=== PATIENT | female | born 1960 | race Caucasian/White ===

== ENCOUNTER 2023-01-26 09:28 | Inpatient (IN) | payer OTHER ==
[~2023-01-26] VITALS: Ht 157.5 cm; Wt 72.0 kg
[2023-01-26 10:45] LABS: Base Excess -2.1 mmol/L (-2.0-2.0)
[2023-01-26 10:52] LABS: Basophils # (auto) 0.1 10 ^3/uL (0-0.2); Basophils % (auto) 0.7 % (0.0-2.0); Eosinophils # (auto) 0 10 ^3/uL (0-0.8); Lymphocytes # (auto) 1.5 10 ^3/uL (0.4-5.4); Lymphocytes % (auto) 19.9 % (10.0-50.0); Mean Corpuscular Hemoglobin 27.8 pg (28.0-32.0); Mean Corpuscular Volume 86.9 fL (80.0-100.0); Monocytes # (auto) 0.9 10 ^3/uL (0-1.3); Monocytes % (auto) 11.8 % (0.0-12.0); Neutrophils % (auto) 67.6 % (37.0-80.0); Nucleated Red Blood Cells % 0.1 %; Red Blood Cells 5.41 10^6/uL (4.0-5.20); White Blood Cell 7.4 10^3/uL (4.4-10.8)
[2023-01-26 11:09] LABS: INR 1.04 (0.9-1.15); Partial Thromboplastin Time 27.9 SEC (24.5-34.5); Prothrombin Time 10.9 sec (9.3-11.8)
[2023-01-26 13:18] LABS: Alanine Aminotransferase 35 U/L (7-40); Albumin 4.5 g/dL (3.2-4.8); Alkaline Phosphatase 159 U/L (46-116); Anion Gap 17 (5-15); Aspartate Aminotransferase 36 U/L (13-40); BUN/Creatinine Ratio 16.5 (10.0-20.0); Bilirubin, Total 0.4 mg/dL (0.2-1.0); Blood Urea Nitrogen 20 mg/dL (9-23); Calcium 9.2 mg/dL (8.5-10.1); Carbon Dioxide 17 mmol/L (20-30); Chloride 105 mmol/L (98-107); Glucose 214 mg/dL (74-106); Potassium 4.1 mmol/L (3.5-5.1); Sodium 139 mmol/L (136-145); Total Protein 7.3 g/dL (5.7-8.2)
[2023-01-26] MEDS ORDERED: IOHEXOL 350 MG/ML 100ML IJ ONE (13:57)
[2023-01-26 15:33] LABS: Rapid Influenza B Negative (Negative)
[2023-01-26 15:35] LABS: COVID19 ANTIGEN SOFIA FIA NEGATIVE (NEGATIVE); Rapid Influenza A Positive (Negative)
[2023-01-26] MEDS ORDERED: ALBUAER3 IN (15:58)
[2023-01-26] MEDS ORDERED: METH4PAK PO (15:58)
[2023-01-26] MEDS ORDERED: DexAMETHasone SOD PHOS 10MG/1ML VIAL INJ IV ONE (16:30)
[2023-01-26] MEDS ORDERED: ALBUTEROL MEDNEB 2.5 mg/3ml NEB NEB ONE (18:00)
[2023-01-26] MEDS ORDERED: DEXTROSE (50%) 50ML SYRG IV PRN (18:00)
[2023-01-26] MEDS ORDERED: IPRATROPIUM BROM 0.5 MG/2.5ML INH SOL NEB ONE (18:00)
[2023-01-26] MEDS ORDERED: DOCUSATE SOD 100 MG CAP PO PRN (18:00)
[2023-01-26] MEDS ORDERED: IPRATROPIUM BROM 0.5 MG/2.5ML INH SOL ONE (18:21)
[2023-01-26] MEDS ORDERED: ALBUTEROL MEDNEB 2.5 mg/3ml NEB ONE (18:21)
[2023-01-26] MEDS: SODIUM CHLORIDE 0.9% 1,000 ML IV SCH (19:47)
[2023-01-26 21:30] VITALS: BP 111/70; PULSE 89; RESP 20; TEMP 99; O2SAT 98
[2023-01-26] MEDS ORDERED: OSELTAMIVIR 75 MG CAP PO ONE (22:00)
[2023-01-26] MEDS: ACCU-CHEK COMFORT CURVE STRIP VI SCH (23:03)
[2023-01-26] MEDS: InsuLIN REG 1unit/0.01ml Soln (100units/ml) SC SCH (23:27)
[2023-01-26] MEDS: methylPREDNISolone SOD SUCC 125 MG/2 ML VL IV SCH (23:27)
[2023-01-27] VITALS (9 sets, daily range): BP systolic 151; BP diastolic 59–71; PULSE 79–92; RESP 20–22; TEMP 98.3–99.9; O2SAT 92–98
[2023-01-27] MEDS: MORPHINE SULFATE INJ 2 MG/ml SYRG IV PRN ×4 (00:13→18:10)
[2023-01-27] MEDS: ONDANSETRON HCL 4 MG/2 ML VIAL IV PRN ×4 (00:13→18:09)
[2023-01-27] MEDS: SODIUM CHLORIDE 0.9% 1,000 ML IV SCH ×3 (02:21→18:44)
[2023-01-27] MEDS: ALBUTEROL MEDNEB 2.5 mg/3ml NEB NEB PRN (02:39)
[2023-01-27] MEDS: IPRATROPIUM BROM 0.5 MG/2.5ML INH SOL NEB PRN (02:39)
[2023-01-27 06:16] LABS: Basophils # (auto) 0 10 ^3/uL (0-0.2); Basophils % (auto) 0.2 % (0.0-2.0); Eosinophils # (auto) 0 10 ^3/uL (0-0.8); Hematocrit 42.9 % (36.0-46.0); Hemoglobin 13.8 g/dL (12.2-16.2); Lymphocytes # (auto) 0.5 10 ^3/uL (0.4-5.4); Lymphocytes % (auto) 8.5 % (10.0-50.0); Mean Corpuscular Hemoglobin 27.8 pg (28.0-32.0); Mean Corpuscular Hgb Conc. 32.3 g/dL (32.0-36.0); Mean Corpuscular Volume 86.2 fL (80.0-100.0); Monocytes # (auto) 0.1 10 ^3/uL (0-1.3); Monocytes % (auto) 1.7 % (0.0-12.0); Neutrophils # (auto) 5.2 10 ^3/uL (1.6-8.6); Neutrophils % (auto) 89.6 % (37.0-80.0); Nucleated Red Blood Cells % 0.1 %; Red Blood Cells 4.98 10^6/uL (4.0-5.20); Red Cell Distribution Width 15.5 % (11.8-14.3); White Blood Cell 5.8 10^3/uL (4.4-10.8)
[2023-01-27 06:19] LABS: Alanine Aminotransferase 27 U/L (7-40); Albumin 4.4 g/dL (3.2-4.8); Alkaline Phosphatase 151 U/L (46-116); Anion Gap 11 (5-15); Aspartate Aminotransferase 27 U/L (13-40); BUN/Creatinine Ratio 16.7 (10.0-20.0); Blood Urea Nitrogen 17 mg/dL (9-23); Calcium 9.2 mg/dL (8.5-10.1); Carbon Dioxide 20 mmol/L (20-30); Chloride 106 mmol/L (98-107); Glucose 228 mg/dL (74-106); Sodium 137 mmol/L (136-145)
[2023-01-27 06:20] LABS: Bilirubin, Total 0.3 mg/dL (0.2-1.0); Total Protein 7.4 g/dL (5.7-8.2)
[2023-01-27] MEDS: ACCU-CHEK COMFORT CURVE STRIP VI SCH ×4 (06:43→21:44)
[2023-01-27] MEDS: methylPREDNISolone SOD SUCC 125 MG/2 ML VL IV SCH ×3 (06:43→21:44)
[2023-01-27] MEDS: InsuLIN REG 1unit/0.01ml Soln (100units/ml) SC SCH ×4 (07:01→21:52)
[2023-01-27] MEDS: OSELTAMIVIR 30 MG CAP PO SCH ×2 (09:33→21:44)
[2023-01-27] MEDS: PANTOPRAZOLE 40 MG/10 ML VIAL INJ IV SCH (09:33)
[2023-01-27] MEDS: DOXYCYCLINE 100MG/250ML 250 ML IV SCH (13:28)
[2023-01-28] VITALS (12 sets, daily range): BP systolic 125–159; BP diastolic 68–90; PULSE 83–110; RESP 20–26; TEMP 97.5–98.3; O2SAT 90–99
[2023-01-28] MEDS: DOXYCYCLINE 100MG/250ML 250 ML IV SCH ×2 (00:25→11:27)
[2023-01-28] MEDS: SODIUM CHLORIDE 0.9% 1,000 ML IV SCH (03:20)
[2023-01-28] MEDS: MORPHINE SULFATE INJ 2 MG/ml SYRG IV PRN ×3 (04:07→16:50)
[2023-01-28] MEDS: IPRATROPIUM BROM 0.5 MG/2.5ML INH SOL NEB PRN ×2 (04:24→23:47)
[2023-01-28] MEDS: ALBUTEROL MEDNEB 2.5 mg/3ml NEB NEB PRN ×2 (04:24→23:47)
[2023-01-28 05:57] LABS: Basophils # (auto) 0 10 ^3/uL (0-0.2); Basophils % (auto) 0.1 % (0.0-2.0); Eosinophils # (auto) 0 10 ^3/uL (0-0.8); Hematocrit 41.4 % (36.0-46.0); Hemoglobin 13.1 g/dL (12.2-16.2); Lymphocytes # (auto) 1.1 10 ^3/uL (0.4-5.4); Lymphocytes % (auto) 8.8 % (10.0-50.0); Mean Corpuscular Hemoglobin 27.7 pg (28.0-32.0); Mean Corpuscular Hgb Conc. 31.7 g/dL (32.0-36.0); Mean Corpuscular Volume 87.2 fL (80.0-100.0); Monocytes # (auto) 1.2 10 ^3/uL (0-1.3); Monocytes % (auto) 9.5 % (0.0-12.0); Neutrophils # (auto) 10.4 10 ^3/uL (1.6-8.6); Neutrophils % (auto) 81.6 % (37.0-80.0); Nucleated Red Blood Cells % 0.1 %; Red Blood Cells 4.75 10^6/uL (4.0-5.20); Red Cell Distribution Width 15.8 % (11.8-14.3); White Blood Cell 12.7 10^3/uL (4.4-10.8)
[2023-01-28 06:06] LABS: Chloride 106 mmol/L (98-107); Potassium 4.1 mmol/L (3.5-5.1); Sodium 137 mmol/L (136-145)
[2023-01-28 06:07] LABS: Anion Gap 8 (5-15); Carbon Dioxide 23 mmol/L (20-30)
[2023-01-28 06:08] LABS: Calcium 9.2 mg/dL (8.5-10.1)
[2023-01-28 06:13] LABS: Blood Urea Nitrogen 17 mg/dL (9-23); Glucose 192 mg/dL (74-106)
[2023-01-28] MEDS: ACCU-CHEK COMFORT CURVE STRIP VI SCH ×4 (06:31→22:21)
[2023-01-28] MEDS: methylPREDNISolone SOD SUCC 125 MG/2 ML VL IV SCH ×3 (06:31→22:12)
[2023-01-28] MEDS: InsuLIN REG 1unit/0.01ml Soln (100units/ml) SC SCH ×4 (06:38→22:20)
[2023-01-28] MEDS ORDERED: ENOXAPARIN SOD 40 MG/0.4 ML SYRINGE SC ONE (09:00)
[2023-01-28] MEDS ORDERED: ACETAMINOPHEN 325 MG TAB PO PRN ×2 (09:00)
[2023-01-28] MEDS: OSELTAMIVIR 30 MG CAP PO SCH (09:38)
[2023-01-28] MEDS: ONDANSETRON HCL 4 MG/2 ML VIAL IV PRN ×2 (09:39→16:49)
[2023-01-28] MEDS: PANTOPRAZOLE 40 MG/10 ML VIAL INJ IV SCH (09:39)
[2023-01-28 10:00] LABS: Hepatitis B Surface Antigen Negative (Negative)
[2023-01-28 10:22] LABS: Hepatitis C Antibody Negative (Negative)
[2023-01-28] MEDS ORDERED: FUROSEMIDE 20 MG/2 ML VIAL IV ONE (11:30)
[2023-01-28] MEDS: OSELTAMIVIR 75 MG CAP PO SCH (22:12)
[2023-01-28] MEDS: guaiFENesin-CODEINE Liq 5 ML UD PO PRN (23:34)
[2023-01-29] VITALS (11 sets, daily range): BP systolic 90–128; BP diastolic 54–61; PULSE 64–89; RESP 18–23; TEMP 97.7–99; O2SAT 90–98
[2023-01-29] MEDS: MORPHINE SULFATE INJ 2 MG/ml SYRG IV PRN ×2 (00:58→16:08)
[2023-01-29] MEDS: DOXYCYCLINE 100MG/250ML 250 ML IV SCH ×2 (00:58→11:15)
[2023-01-29] MEDS: methylPREDNISolone SOD SUCC 125 MG/2 ML VL IV SCH ×3 (06:34→21:06)
[2023-01-29 06:37] LABS: Basophils # (auto) 0 10 ^3/uL (0-0.2); Eosinophils # (auto) 0 10 ^3/uL (0-0.8); Hematocrit 45.9 % (36.0-46.0); Hemoglobin 14.5 g/dL (12.2-16.2); Lymphocytes # (auto) 0.6 10 ^3/uL (0.4-5.4); Lymphocytes % (auto) 4.1 % (10.0-50.0); Mean Corpuscular Hemoglobin 27.7 pg (28.0-32.0); Mean Corpuscular Hgb Conc. 31.6 g/dL (32.0-36.0); Mean Corpuscular Volume 87.6 fL (80.0-100.0); Neutrophils # (auto) 12.6 10 ^3/uL (1.6-8.6); Neutrophils % (auto) 88.9 % (37.0-80.0); Red Blood Cells 5.24 10^6/uL (4.0-5.20); Red Cell Distribution Width 16.2 % (11.8-14.3); White Blood Cell 14.2 10^3/uL (4.4-10.8)
[2023-01-29 06:51] LABS: Anion Gap 11 (5-15); Calcium 9.3 mg/dL (8.7-10.4); Carbon Dioxide 25 mmol/L (20-30); Chloride 105 mmol/L (98-107); Potassium 3.9 mmol/L (3.5-5.1); Sodium 141 mmol/L (136-145)
[2023-01-29 06:57] LABS: Blood Urea Nitrogen 17 mg/dL (9-23); Glucose 165 mg/dL (74-106)
[2023-01-29] MEDS: ACCU-CHEK COMFORT CURVE STRIP VI SCH ×4 (07:19→21:22)
[2023-01-29] MEDS: InsuLIN REG 1unit/0.01ml Soln (100units/ml) SC SCH ×4 (07:29→21:18)
[2023-01-29] MEDS: PANTOPRAZOLE 40 MG/10 ML VIAL INJ IV SCH (09:52)
[2023-01-29] MEDS: ENOXAPARIN SOD 40 MG/0.4 ML SYRINGE SC SCH (09:53)
[2023-01-29] MEDS: OSELTAMIVIR 75 MG CAP PO SCH ×2 (09:53→21:06)
[2023-01-29] MEDS ORDERED: FUROSEMIDE 20 MG/2 ML VIAL IV ONE (13:00)
[2023-01-29] MEDS: guaiFENesin-CODEINE Liq 5 ML UD PO PRN (21:05)
[2023-01-30] VITALS (9 sets, daily range): BP systolic 112–136; BP diastolic 45–56; PULSE 59–82; RESP 17–20; TEMP 97.3–97.9; O2SAT 91–100
[2023-01-30] MEDS: DOXYCYCLINE 100MG/250ML 250 ML IV SCH ×2 (00:31→11:25)
[2023-01-30] MEDS: MORPHINE SULFATE INJ 2 MG/ml SYRG IV PRN ×3 (02:50→22:09)
[2023-01-30 06:29] LABS: Anion Gap 5 (5-15); Carbon Dioxide 29 mmol/L (20-30); Chloride 105 mmol/L (98-107); Potassium 4.1 mmol/L (3.5-5.1); Sodium 139 mmol/L (136-145)
[2023-01-30 06:31] LABS: Calcium 8.8 mg/dL (8.7-10.4)
[2023-01-30 06:35] LABS: Glucose 201 mg/dL (74-106)
[2023-01-30 06:36] LABS: BUN/Creatinine Ratio 34.2 (10.0-20.0)
[2023-01-30 06:39] LABS: Basophils # (auto) 0 10 ^3/uL (0-0.2); Basophils % (auto) 0.1 % (0.0-2.0); Eosinophils # (auto) 0 10 ^3/uL (0-0.8); Hematocrit 39.7 % (36.0-46.0); Hemoglobin 12.6 g/dL (12.2-16.2); Lymphocytes # (auto) 0.9 10 ^3/uL (0.4-5.4); Mean Corpuscular Hemoglobin 27.3 pg (28.0-32.0); Mean Corpuscular Hgb Conc. 31.6 g/dL (32.0-36.0); Mean Corpuscular Volume 86.2 fL (80.0-100.0); Monocytes # (auto) 0.5 10 ^3/uL (0-1.3); Monocytes % (auto) 4.4 % (0.0-12.0); Neutrophils # (auto) 10.2 10 ^3/uL (1.6-8.6); Neutrophils % (auto) 87.5 % (37.0-80.0); Nucleated Red Blood Cells % 0.1 %; Red Blood Cells 4.61 10^6/uL (4.0-5.20); White Blood Cell 11.7 10^3/uL (4.4-10.8)
[2023-01-30] MEDS: ACCU-CHEK COMFORT CURVE STRIP VI SCH ×4 (06:40→21:54)
[2023-01-30] MEDS: InsuLIN REG 1unit/0.01ml Soln (100units/ml) SC SCH ×4 (06:43→21:54)
[2023-01-30 07:05] LABS: Blood Urea Nitrogen 27 mg/dL (9-23)
[2023-01-30] MEDS: ENOXAPARIN SOD 40 MG/0.4 ML SYRINGE SC SCH (11:24)
[2023-01-30] MEDS: PANTOPRAZOLE 40 MG/10 ML VIAL INJ IV SCH (11:24)
[2023-01-30] MEDS: OSELTAMIVIR 75 MG CAP PO SCH ×2 (11:24→22:05)
[2023-01-30] MEDS: methylPREDNISolone SOD SUCC 125 MG/2 ML VL IV SCH ×2 (11:24→22:05)
[2023-01-31] VITALS (9 sets, daily range): BP systolic 116–142; BP diastolic 53–71; PULSE 54–65; RESP 18–20; TEMP 97.3–97.8; O2SAT 92–96
[2023-01-31] MEDS: DOXYCYCLINE 100MG/250ML 250 ML IV SCH ×2 (02:40→12:10)
[2023-01-31] MEDS: guaiFENesin-CODEINE Liq 5 ML UD PO PRN (02:49)
[2023-01-31] MEDS: InsuLIN REG 1unit/0.01ml Soln (100units/ml) SC SCH ×4 (06:23→22:31)
[2023-01-31] MEDS: methylPREDNISolone SOD SUCC 125 MG/2 ML VL IV SCH ×2 (09:36→21:24)
[2023-01-31] MEDS: PANTOPRAZOLE 40 MG/10 ML VIAL INJ IV SCH (09:36)
[2023-01-31] MEDS: OSELTAMIVIR 75 MG CAP PO SCH (09:37)
[2023-01-31] MEDS: ENOXAPARIN SOD 40 MG/0.4 ML SYRINGE SC SCH (09:38)
[2023-01-31] MEDS: ACCU-CHEK COMFORT CURVE STRIP VI SCH ×3 (12:09→21:25)
[2023-01-31] MEDS: MORPHINE SULFATE INJ 2 MG/ml SYRG IV PRN (21:26)
[2023-02-01] VITALS (12 sets, daily range): BP systolic 114–144; BP diastolic 57–92; PULSE 54–94; RESP 18–26; TEMP 98–98.6; O2SAT 60–96
[2023-02-01] MEDS: guaiFENesin-CODEINE Liq 5 ML UD PO PRN (03:27)
[2023-02-01] MEDS: DOXYCYCLINE 100MG/250ML 250 ML IV SCH ×2 (03:28→11:44)
[2023-02-01] MEDS: IPRATROPIUM BROM 0.5 MG/2.5ML INH SOL NEB PRN (03:42)
[2023-02-01] MEDS: ALBUTEROL MEDNEB 2.5 mg/3ml NEB NEB PRN (03:42)
[2023-02-01] MEDS: ACCU-CHEK COMFORT CURVE STRIP VI SCH ×4 (06:48→22:00)
[2023-02-01] MEDS: InsuLIN REG 1unit/0.01ml Soln (100units/ml) SC SCH ×4 (06:57→22:00)
[2023-02-01] MEDS: ENOXAPARIN SOD 40 MG/0.4 ML SYRINGE SC SCH (09:53)
[2023-02-01] MEDS: PANTOPRAZOLE 40 MG/10 ML VIAL INJ IV SCH (09:53)
[2023-02-01] MEDS: methylPREDNISolone SOD SUCC 125 MG/2 ML VL IV SCH ×2 (09:54→22:00)
[2023-02-01] MEDS: MORPHINE SULFATE INJ 2 MG/ml SYRG IV PRN (10:25)
[2023-02-01] MEDS ORDERED: PRED20TA2 PO (11:16)
[2023-02-01] MEDS ORDERED: DOXY-447 PO (11:16)
[2023-02-01] MEDS ORDERED: UMEC1AER IN (11:16)
[2023-02-01 11:18] LABS: Calcium 8.7 mg/dL (8.5-10.1); Chloride 101 mmol/L (98-107); Potassium 3.8 mmol/L (3.5-5.1); Sodium 136 mmol/L (136-145)
[2023-02-01 11:19] LABS: Anion Gap 9 (5-15); Carbon Dioxide 26 mmol/L (20-30)
[2023-02-01 11:24] LABS: BUN/Creatinine Ratio 23.8 (10.0-20.0); Blood Urea Nitrogen 19 mg/dL (9-23); Glucose 319 mg/dL (74-106)
[2023-02-01 11:30] LABS: Basophils # (auto) 0 10 ^3/uL (0-0.2); Basophils % (auto) 0.2 % (0.0-2.0); Eosinophils # (auto) 0 10 ^3/uL (0-0.8); Hematocrit 39.8 % (36.0-46.0); Hemoglobin 12.8 g/dL (12.2-16.2); Lymphocytes # (auto) 1.6 10 ^3/uL (0.4-5.4); Lymphocytes % (auto) 12.6 % (10.0-50.0); Mean Corpuscular Hemoglobin 27.1 pg (28.0-32.0); Mean Corpuscular Volume 84.7 fL (80.0-100.0); Monocytes # (auto) 0.9 10 ^3/uL (0-1.3); Monocytes % (auto) 7.3 % (0.0-12.0); Neutrophils # (auto) 10.2 10 ^3/uL (1.6-8.6); Neutrophils % (auto) 79.9 % (37.0-80.0); Nucleated Red Blood Cells % 0.1 %; Red Cell Distribution Width 15.6 % (11.8-14.3); White Blood Cell 12.8 10^3/uL (4.4-10.8)
[2023-02-01 14:06] LABS: Base Excess 3.7 mmol/L (-2.0-2.0)
== END 2023-02-01 20:38 | disposition home or self-care (01) | DRG 193 ==
LOC: ER 09:28 → TELE 18:02 → TELE-CENTR 01-27 07:47
PROVIDERS: ADMIT Nurse Practitioner Family; ATTEND Internal Medicine Pulmonary Disease
DX: J10.1 Influenza due to other identified influenza virus with other respiratory manifestations (principal); J96.01 Acute respiratory failure with hypoxia; N17.9 Acute kidney failure, unspecified; J43.9 Emphysema, unspecified; E78.5 Hyperlipidemia, unspecified; G43.909 Migraine, unspecified, not intractable, without status migrainosus; Z20.822 Contact with and (suspected) exposure to COVID-19; Z85.43 Personal history of malignant neoplasm of ovary; Z86.16 Personal history of COVID-19; Z87.891 Personal history of nicotine dependence; Z88.1 Allergy status to other antibiotic agents; Z90.711 Acquired absence of uterus with remaining cervical stump; E11.65 Type 2 diabetes mellitus with hyperglycemia
CPT/HCPCS: 36415; 36600; 71045; 71275; 80048; 80053; 82805; 82962; 83036; 83690; 83735; 83880; 84484; 85025; 85379; 85610; 85730; 86803; 87040; 87081; 87340; 87426; 87804; 93005; 94640; C9113; G0378; G9035; J1100; J1815; J2405; J3490